=== PATIENT | male | born 1965 | race African-American/Black ===

== ENCOUNTER 2018-04-15 09:23 | Inpatient (IN) | payer MEDICARE, MEDICAID ==
[~2018-04-15] VITALS: Ht 182.9 cm; Wt 128.4 kg
[2018-04-15] VITALS (7 sets, daily range): BP systolic 176–193; BP diastolic 95–104
[2018-04-15] MEDS ORDERED: SODIUM CHLORIDE 0.9% 1,000 ML IV ONE (09:48)
[2018-04-15] MEDS ORDERED: PIPERACILLIN/TAZ 3.375G PREMIX 50 ML IV ONE (10:00)
[2018-04-15] MEDS ORDERED: ONDANSETRON HCL 4MG/2ML INJ IV ONE (10:00)
[2018-04-15] MEDS ORDERED: VANCOMYCIN 1 G PREMIX 200 ML IV ONE (10:00)
[2018-04-15] MEDS ORDERED: MORPHINE SULFATE 4 MG/ML CPJ (NOT FOR IM USE) IV ONE (10:00)
[2018-04-15 10:36] LABS: HEMATOCRIT. 30.5 % (42.0-52.0); HEMOGLOBIN. 9.7 g/dL (14.0-18.0); MEAN CORPUSCULAR HEMOGLOBIN 24.8 pg (28.0-32.0); MEAN CORPUSCULAR VOLUME 78.4 fL (80.0-94.0); MEAN PLATELET VOLUME 9.6 fl (7.4-10.4); PLATELET 178 x1000/uL (130-400); RED BLOOD CELL COUNT 3.89 mill/uL (4.7-6.1); RED CELL DISTRIBUTION WIDTH 18.8 % (11.6-14.6)
[2018-04-15 10:37] LABS: INR 1.1; PROTHROMBIN TIME 11.2 sec (9.1-11.1)
[2018-04-15 10:38] LABS: CHLORIDE 103 mEq/L (98-107)
[2018-04-15 11:00] LABS: PLATELET ESTIMATE NORMAL
[2018-04-15 11:21] LABS: BG BASE EXCESS 14.5 mmol/L (-2.0-2.0); BG CARBOXYHEMOGLOBIN 0.8 % (0.5-1.5); BG DEOXYHEMOGLOBIN 1.3 % (0.0-5.0); BG FRACTION INSPIRED OXYGEN 32; BG HCO3 ACT 42.1 mmol/L (22.0-26.0); BG METHEMOGLOBIN 0.3 % (0.0-1.5); BG OXYGEN SATURATION 98.7 % (92.0-98.5); BG OXYHEMOGLOBIN 97.6 % (94.0-97.0); BG PCO2 69.8 mmHg (35.0-45.0); BG PH 7.398 (7.350-7.450); BG PO2 131.6 mmHg (75.0-100.0); BG SAMPLE SITE RIGHT RADIAL; BG TOTAL HEMOGLOBIN 11.1 g/dL (12.0-18.0); BG VENT MODE NASAL CANNULA
[2018-04-15 13:14] LABS: CLARITY URINE CLEAR (CLEAR); COLOR URINE YELLOW (YELLOW); KETONES URINE NEGATIVE (NEGATIVE); LEUKOCYTE ESTERASE URINE NEGATIVE (NEGATIVE); NITRITE URINE NEGATIVE (NEGATIVE); OCCULT BLOOD URINE NEGATIVE (NEGATIVE); PH URINE 7.5 (4.5-8.0); PROTEIN URINE 2+ (NEGATIVE); SPECIFIC GRAVITY URINE 1.016 (1.005-1.030)
[2018-04-15 14:09] LABS: *AMPHETAMINES SCREEN URINE NEGATIVE (NEGATIVE); *BARBITURATES SCREEN URINE NEGATIVE (NEGATIVE); CANNABINOID URINE SCREEN NEGATIVE (NEGATIVE); METHADONE URINE SCREEN NEGATIVE (NEGATIVE); OPIATES URINE SCREEN NEGATIVE (NEGATIVE); PHENCYCLIDINE URINE SCREEN NEGATIVE (NEGATIVE)
[2018-04-15 14:10] LABS: *BENZODIAZEPINES SCREEN URINE NEGATIVE (NEGATIVE); *COCAINE SCREEN URINE NEGATIVE (NEGATIVE)
[2018-04-15] MEDS ORDERED: IPRATROPIUM/ALBUTEROL 0.5-3(2.5)MG/3ML NEB INH PRN (16:15)
[2018-04-15] MEDS ORDERED: LEVOFLOXACIN 500MG PREMIX 100 ML IV NR (18:00)
[2018-04-15 18:10] LABS: PHOSPHORUS 4.5 mg/dL (2.5-4.9)
[2018-04-15] MEDS: HYDROCODONE/ACETAMINOPHEN 5/325MG TABLET PO PRN (18:11)
[2018-04-15] MEDS: FUROSEMIDE 40MG/4ML VIAL IV SCH (18:11)
[2018-04-15] MEDS: DOCUSATE SODIUM 100MG CAPSULE PO PRN (18:11)
[2018-04-15] MEDS: AMLODIPINE 5MG TABLET PO SCH (18:12)
[2018-04-15 18:18] LABS: BG BASE EXCESS 2.8 mmol/L (-2.0-2.0); BG CARBOXYHEMOGLOBIN 1.2 % (0.5-1.5); BG DEOXYHEMOGLOBIN 7.5 % (0.0-5.0); BG FRACTION INSPIRED OXYGEN 40; BG HCO3 ACT 30.2 mmol/L (22.0-26.0); BG METHEMOGLOBIN 0.2 % (0.0-1.5); BG OXYGEN SATURATION 92.4 % (92.0-98.5); BG OXYHEMOGLOBIN 91.1 % (94.0-97.0); BG PCO2 61.4 mmHg (35.0-45.0); BG PH 7.309 (7.350-7.450); BG PO2 75.8 mmHg (75.0-100.0); BG SAMPLE SITE RIGHT BRACHIAL; BG TOTAL HEMOGLOBIN 10.3 g/dL (12.0-18.0); BG VENT MODE NASAL CANNULA
[2018-04-15] MEDS: ACETAMINOPHEN 325MG TABLET PO PRN (19:33)
[2018-04-15 20:03] LABS: TOTAL IRON BINDING CAPACITY 375 ug/dL (250-450)
[2018-04-15 20:24] LABS: FOLIC ACID (FOLATE) SERUM 17.4 ng/mL (>5.38)
[2018-04-15] MEDS: CLONIDINE 0.1MG TABLET PO PRN (20:24)
[2018-04-15] MEDS: INSULIN LISPRO 100 UNITS/ML SUBCUT SCH (21:00)
[2018-04-15] MEDS: BLOOD SUGAR DIAGNOSTIC STRIP TEST SCH (21:00)
[2018-04-15] MEDS ORDERED: DEXTROSE 50% WATER 50ML SYRINGE IV PRN (21:15)
[2018-04-15] MEDS: ONDANSETRON HCL 4MG/2ML INJ IV PRN (21:43)
[2018-04-15] MEDS ORDERED: INSULIN LISPRO 100 UNITS/ML SUBCUT SCH (22:00)
[2018-04-15] MEDS ORDERED: BLOOD SUGAR DIAGNOSTIC STRIP TEST SCH (22:00)
[2018-04-15 23:00] LABS: BG BASE EXCESS 7.5 mmol/L (-2.0-2.0); BG CARBOXYHEMOGLOBIN 0.7 % (0.5-1.5); BG DEOXYHEMOGLOBIN 6.8 % (0.0-5.0); BG FRACTION INSPIRED OXYGEN 40; BG HCO3 ACT 35.2 mmol/L (22.0-26.0); BG METHEMOGLOBIN 0.3 % (0.0-1.5); BG OXYGEN SATURATION 93.1 % (92.0-98.5); BG OXYHEMOGLOBIN 92.2 % (94.0-97.0); BG PCO2 68.5 mmHg (35.0-45.0); BG PH 7.329 (7.350-7.450); BG PO2 77.9 mmHg (75.0-100.0); BG SAMPLE SITE RIGHT BRACHIAL; BG TOTAL HEMOGLOBIN 10.4 g/dL (12.0-18.0); BG VENT MODE NASAL CANNULA
[2018-04-16] VITALS (12 sets, daily range): BP systolic 148–179; BP diastolic 69–115
[2018-04-16] MEDS: CLONIDINE 0.1MG TABLET PO PRN ×2 (05:52→18:06)
[2018-04-16 06:30] LABS: HEMATOCRIT. 30.4 % (42.0-52.0); HEMOGLOBIN. 9.5 g/dL (14.0-18.0); MEAN CORPUSCULAR HEMOGLOBIN 24.9 pg (28.0-32.0); MEAN CORPUSCULAR VOLUME 79.4 fL (80.0-94.0); MEAN PLATELET VOLUME 9.7 fl (7.4-10.4); PLATELET 178 x1000/uL (130-400); RED BLOOD CELL COUNT 3.83 mill/uL (4.7-6.1); RED CELL DISTRIBUTION WIDTH 18.9 % (11.6-14.6)
[2018-04-16] MEDS: FUROSEMIDE 40MG/4ML VIAL IV SCH ×2 (06:35→17:21)
[2018-04-16] MEDS: INSULIN LISPRO 100 UNITS/ML SUBCUT SCH ×4 (08:00→20:59)
[2018-04-16] MEDS: BLOOD SUGAR DIAGNOSTIC STRIP TEST SCH ×4 (08:11→20:58)
[2018-04-16] MEDS: AMLODIPINE 5MG TABLET PO SCH (08:29)
[2018-04-16] MEDS: ASPIRIN 81MG EC TABLET PO SCH (08:29)
[2018-04-16] MEDS: POTASSIUM CHLORIDE 20MEQ TABLET SR PO SCH (11:00)
[2018-04-16] MEDS: NITROGLYCERIN OINT 1GM/INCH UDPKT TD SCH ×3 (11:00→21:05)
[2018-04-16 11:41] LABS: PLATELET ESTIMATE NORMAL
[2018-04-16] MEDS: ONDANSETRON HCL 4MG/2ML INJ IV PRN (12:07)
[2018-04-16] MEDS ORDERED: POTA10CA42 PO (13:59)
[2018-04-16] MEDS ORDERED: DIVA-75 PO (13:59)
[2018-04-16] MEDS ORDERED: LABE300T3 PO (13:59)
[2018-04-16] MEDS ORDERED: OMEP20TA2 PO (13:59)
[2018-04-16] MEDS ORDERED: LISI40TA4 PO (13:59)
[2018-04-16] MEDS ORDERED: HYDR-4134 PO (13:59)
[2018-04-16] MEDS ORDERED: GLIP10TA10 PO (13:59)
[2018-04-16] MEDS ORDERED: CLON0.1T PO (13:59)
[2018-04-16] MEDS ORDERED: RISP3DIS PO (13:59)
[2018-04-16] MEDS ORDERED: FENO145T36 PO (13:59)
[2018-04-16] MEDS ORDERED: TRIH5TAB3 GT (13:59)
[2018-04-16] MEDS ORDERED: SIMV20TA6 PO (13:59)
[2018-04-16] MEDS ORDERED: LINA5TAB PO (13:59)
[2018-04-16] MEDS ORDERED: FURO40TA5 PO (13:59)
[2018-04-16] MEDS ORDERED: GABA-531 PO (13:59)
[2018-04-16] MEDS ORDERED: TERA2CAP4 PO (13:59)
[2018-04-16] MEDS ORDERED: LEVOFLOXACIN 250MG PREMIX 50 ML IV SCH (18:00)
[2018-04-16] MEDS: LEVOFLOXACIN 500MG PREMIX 100 ML IV SCH (18:06)
[2018-04-16] MEDS: CARVEDILOL 6.25 MG TABLET PO SCH (21:05)
[2018-04-16] MEDS: IPRATROPIUM/ALBUTEROL 0.5-3(2.5)MG/3ML NEB HHN SCH (23:50)
[2018-04-17] VITALS (11 sets, daily range): BP systolic 163–198; BP diastolic 80–124
[2018-04-17] MEDS: CLONIDINE 0.1MG TABLET PO PRN ×2 (03:47→10:58)
[2018-04-17] MEDS: ACETAMINOPHEN 325MG TABLET PO PRN (03:48)
[2018-04-17] MEDS: NITROGLYCERIN OINT 1GM/INCH UDPKT TD SCH ×3 (05:26→21:13)
[2018-04-17] MEDS: LORAZEPAM 0.5MG TABLET PO PRN (05:33)
[2018-04-17 05:58] LABS: BASOPHILS % 0.2 % (0.0-2.0); EOSINOPHILS % 0.7 % (0.0-5.0); HEMATOCRIT. 31.1 % (42.0-52.0); HEMOGLOBIN. 9.8 g/dL (14.0-18.0); LYMPHOCYTES % 7.2 % (20.0-50.0); MEAN CORPUSCULAR HEMOGLOBIN 24.8 pg (28.0-32.0); MEAN CORPUSCULAR VOLUME 79.2 fL (80.0-94.0); MEAN PLATELET VOLUME 9.9 fl (7.4-10.4); MONOCYTES % 7.6 % (2.0-8.0); NEUTROPHILS % 84.3 % (40.0-76.0); PLATELET 210 x1000/uL (130-400); RED BLOOD CELL COUNT 3.93 mill/uL (4.7-6.1); RED CELL DISTRIBUTION WIDTH 18.8 % (11.6-14.6)
[2018-04-17] MEDS: FUROSEMIDE 40MG/4ML VIAL IV SCH ×2 (06:18→17:43)
[2018-04-17 06:34] LABS: HEPATITIS B SURFACE ANTIGEN NEGATIVE
[2018-04-17] MEDS: BLOOD SUGAR DIAGNOSTIC STRIP TEST SCH ×4 (06:54→20:42)
[2018-04-17 07:04] LABS: HEPATITIS A AB IGM NEGATIVE (NEGATIVE)
[2018-04-17] MEDS: INSULIN LISPRO 100 UNITS/ML SUBCUT SCH ×4 (08:00→20:42)
[2018-04-17] MEDS: IPRATROPIUM/ALBUTEROL 0.5-3(2.5)MG/3ML NEB HHN SCH ×3 (09:00→20:35)
[2018-04-17] MEDS: ASPIRIN 81MG EC TABLET PO SCH (09:13)
[2018-04-17] MEDS: NIFEDIPINE XL 30MG TAB PO SCH ×2 (09:13→21:11)
[2018-04-17] MEDS: CARVEDILOL 6.25 MG TABLET PO SCH ×2 (09:13→21:12)
[2018-04-17] MEDS: POTASSIUM CHLORIDE 20MEQ TABLET SR PO SCH (09:13)
[2018-04-17] MEDS: ISOSORB DINIT/HYDRALAZINE HCL 20/37.5MG TABLET PO SCH ×2 (13:44→21:13)
[2018-04-17] MEDS: CLONIDINE 0.2MG TABLET PO SCH ×2 (13:45→21:12)
[2018-04-17] MEDS: LEVOFLOXACIN 500MG PREMIX 100 ML IV SCH (17:43)
[2018-04-17] MEDS: DIVALPROEX SODIUM 250MG DR TABLET PO SCH (21:13)
[2018-04-18] VITALS (11 sets, daily range): BP systolic 134–176; BP diastolic 75–100
[2018-04-18] MEDS: IPRATROPIUM/ALBUTEROL 0.5-3(2.5)MG/3ML NEB HHN SCH ×4 (02:26→20:17)
[2018-04-18] MEDS: CLONIDINE 0.1MG TABLET PO PRN (04:09)
[2018-04-18] MEDS: ISOSORB DINIT/HYDRALAZINE HCL 20/37.5MG TABLET PO SCH ×3 (05:15→21:32)
[2018-04-18] MEDS: NITROGLYCERIN OINT 1GM/INCH UDPKT TD SCH ×3 (05:15→21:32)
[2018-04-18] MEDS: CLONIDINE 0.2MG TABLET PO SCH ×3 (05:15→21:32)
[2018-04-18] MEDS: FUROSEMIDE 40MG/4ML VIAL IV SCH ×2 (06:34→17:10)
[2018-04-18 06:35] LABS: BASOPHILS % 0.3 % (0.0-2.0); EOSINOPHILS % 1.8 % (0.0-5.0); HEMOGLOBIN. 9.6 g/dL (14.0-18.0); LYMPHOCYTES % 8.6 % (20.0-50.0); MEAN CORPUSCULAR HEMOGLOBIN 24.4 pg (28.0-32.0); MEAN PLATELET VOLUME 9.8 fl (7.4-10.4); MONOCYTES % 8.6 % (2.0-8.0); NEUTROPHILS % 80.7 % (40.0-76.0); PLATELET 221 x1000/uL (130-400); RED BLOOD CELL COUNT 3.93 mill/uL (4.7-6.1)
[2018-04-18] MEDS: BLOOD SUGAR DIAGNOSTIC STRIP TEST SCH ×4 (06:42→20:33)
[2018-04-18 07:34] LABS: PHOSPHORUS 2.9 mg/dL (2.5-4.9)
[2018-04-18] MEDS: INSULIN LISPRO 100 UNITS/ML SUBCUT SCH ×4 (08:00→20:40)
[2018-04-18] MEDS: DIVALPROEX SODIUM 250MG DR TABLET PO SCH ×2 (08:43→20:38)
[2018-04-18] MEDS: LORAZEPAM 0.5MG TABLET PO PRN (08:43)
[2018-04-18] MEDS: TRIHEXYPHENIDYL HCL 5 MG TABLET PO SCH ×2 (08:43→17:10)
[2018-04-18] MEDS: ASPIRIN 81MG EC TABLET PO SCH (08:44)
[2018-04-18] MEDS: CARVEDILOL 6.25 MG TABLET PO SCH ×2 (08:44→20:38)
[2018-04-18] MEDS: NIFEDIPINE XL 30MG TAB PO SCH ×2 (08:45→20:39)
[2018-04-18] MEDS: ACETAMINOPHEN 325MG TABLET PO PRN ×2 (08:45→20:37)
[2018-04-18] MEDS: POTASSIUM CHLORIDE 20MEQ TABLET SR PO SCH (08:45)
[2018-04-18] MEDS: RISPERIDONE 1MG TABLET PO SCH (08:49)
[2018-04-18 10:11] LABS: HIV SCREEN 4G Non Reactive (Non Reactive)
[2018-04-18] MEDS: LEVOFLOXACIN 500MG PREMIX 100 ML IV SCH (17:44)
[2018-04-19] VITALS (8 sets, daily range): BP systolic 142–169; BP diastolic 69–98
[2018-04-19] MEDS: IPRATROPIUM/ALBUTEROL 0.5-3(2.5)MG/3ML NEB HHN SCH ×4 (02:40→20:10)
[2018-04-19] MEDS: CLONIDINE 0.2MG TABLET PO SCH ×3 (05:01→22:00)
[2018-04-19] MEDS: ISOSORB DINIT/HYDRALAZINE HCL 20/37.5MG TABLET PO SCH ×3 (05:02→22:00)
[2018-04-19] MEDS: HYDROCODONE/ACETAMINOPHEN 5/325MG TABLET PO PRN ×2 (05:06→16:32)
[2018-04-19 05:22] LABS: COMPLEMENT C3 153 mg/dL (82-167)
[2018-04-19 06:27] LABS: HEMATOCRIT. 31.7 % (42.0-52.0); MEAN CORPUSCULAR HEMOGLOBIN 24.4 pg (28.0-32.0); MEAN CORPUSCULAR VOLUME 77.2 fL (80.0-94.0); MEAN PLATELET VOLUME 9.5 fl (7.4-10.4); PLATELET 246 x1000/uL (130-400); RED CELL DISTRIBUTION WIDTH 18.4 % (11.6-14.6)
[2018-04-19] MEDS: BLOOD SUGAR DIAGNOSTIC STRIP TEST SCH ×4 (07:30→21:00)
[2018-04-19] MEDS: INSULIN LISPRO 100 UNITS/ML SUBCUT SCH ×4 (08:00→21:00)
[2018-04-19 09:05] LABS: PHOSPHORUS 4.1 mg/dL (2.5-4.9)
[2018-04-19] MEDS: POTASSIUM CHLORIDE 20MEQ TABLET SR PO SCH (09:48)
[2018-04-19] MEDS: NITROGLYCERIN OINT 1GM/INCH UDPKT TD SCH ×3 (09:49→22:15)
[2018-04-19] MEDS: NIFEDIPINE XL 30MG TAB PO SCH (09:49)
[2018-04-19] MEDS: ASPIRIN 81MG EC TABLET PO SCH (09:50)
[2018-04-19] MEDS: CARVEDILOL 6.25 MG TABLET PO SCH ×2 (09:50→22:00)
[2018-04-19] MEDS: DOCUSATE SODIUM 100MG CAPSULE PO PRN (09:50)
[2018-04-19] MEDS: RISPERIDONE 1MG TABLET PO SCH (09:50)
[2018-04-19] MEDS: FUROSEMIDE 40MG/4ML VIAL IV SCH ×2 (09:50→16:31)
[2018-04-19] MEDS: TRIHEXYPHENIDYL HCL 5 MG TABLET PO SCH ×2 (09:51→16:32)
[2018-04-19] MEDS: LORAZEPAM 0.5MG TABLET PO PRN (09:51)
[2018-04-19] MEDS: DIVALPROEX SODIUM 250MG DR TABLET PO SCH ×2 (09:52→22:00)
[2018-04-19 11:24] LABS: PLATELET ESTIMATE NORMAL
[2018-04-19] MEDS ORDERED: NIFEDIPINE XL 60MG TAB PO SCH (21:00)
[2018-04-19] MEDS: NIFEDIPINE XL 90MG TAB PO SCH (21:59)
[2018-04-20] VITALS (7 sets, daily range): BP systolic 109–141; BP diastolic 66–85
[2018-04-20] MEDS: IPRATROPIUM/ALBUTEROL 0.5-3(2.5)MG/3ML NEB HHN SCH ×2 (01:36→20:18)
[2018-04-20] MEDS: BLOOD SUGAR DIAGNOSTIC STRIP TEST SCH ×4 (05:47→21:29)
[2018-04-20] MEDS: INSULIN LISPRO 100 UNITS/ML SUBCUT SCH ×4 (05:47→21:00)
[2018-04-20] MEDS: NITROGLYCERIN OINT 1GM/INCH UDPKT TD SCH (05:48)
[2018-04-20] MEDS: CLONIDINE 0.2MG TABLET PO SCH ×3 (05:48→21:28)
[2018-04-20] MEDS: ISOSORB DINIT/HYDRALAZINE HCL 20/37.5MG TABLET PO SCH ×3 (05:49→21:33)
[2018-04-20] MEDS: FUROSEMIDE 40MG/4ML VIAL IV SCH (06:28)
[2018-04-20 07:18] LABS: HEMATOCRIT. 31.5 % (42.0-52.0); HEMOGLOBIN. 10.1 g/dL (14.0-18.0); MEAN CORPUSCULAR HEMOGLOBIN 24.6 pg (28.0-32.0); MEAN CORPUSCULAR VOLUME 76.9 fL (80.0-94.0); MEAN PLATELET VOLUME 9.6 fl (7.4-10.4); PLATELET 274 x1000/uL (130-400); RED CELL DISTRIBUTION WIDTH 18.4 % (11.6-14.6)
[2018-04-20 07:36] LABS: CHLORIDE 98 mEq/L (98-107)
[2018-04-20 07:51] LABS: PHOSPHORUS 4.7 mg/dL (2.5-4.9)
[2018-04-20 08:32] LABS: BG BASE EXCESS 6.9 mmol/L (-2.0-2.0); BG CARBOXYHEMOGLOBIN 0.8 % (0.5-1.5); BG DEOXYHEMOGLOBIN 11.1 % (0.0-5.0); BG FRACTION INSPIRED OXYGEN 21; BG HCO3 ACT 31.4 mmol/L (22.0-26.0); BG METHEMOGLOBIN 0.3 % (0.0-1.5); BG OXYGEN SATURATION 88.8 % (92.0-98.5); BG OXYHEMOGLOBIN 87.8 % (94.0-97.0); BG PCO2 44.3 mmHg (35.0-45.0); BG PH 7.468 (7.350-7.450); BG SAMPLE SITE RIGHT BRACHIAL; BG TOTAL HEMOGLOBIN 10.3 g/dL (12.0-18.0); BG VENT MODE ROOM AIR
[2018-04-20] MEDS: POTASSIUM CHLORIDE 20MEQ TABLET SR PO SCH (09:44)
[2018-04-20] MEDS: CARVEDILOL 6.25 MG TABLET PO SCH ×2 (09:44→21:29)
[2018-04-20] MEDS: ASPIRIN 81MG EC TABLET PO SCH (09:44)
[2018-04-20] MEDS: NIFEDIPINE XL 90MG TAB PO SCH ×2 (09:44→21:28)
[2018-04-20] MEDS: DIVALPROEX SODIUM 250MG DR TABLET PO SCH ×2 (09:44→21:29)
[2018-04-20] MEDS: RISPERIDONE 1MG TABLET PO SCH (09:45)
[2018-04-20] MEDS: LEVOFLOXACIN 500MG TABLET PO SCH (11:28)
[2018-04-20] MEDS: TRIHEXYPHENIDYL HCL 5 MG TABLET PO SCH ×2 (11:28→17:32)
[2018-04-20 14:12] LABS: PLATELET ESTIMATE NORMAL
[2018-04-20] MEDS: ENOXAPARIN 40MG/0.4ML SYR SUBCUT SCH ×2 (14:52→21:28)
[2018-04-21] VITALS: BP 144/72
[2018-04-21] MEDS: IPRATROPIUM/ALBUTEROL 0.5-3(2.5)MG/3ML NEB HHN SCH ×4 (01:57→21:11)
[2018-04-21 04:00] VITALS: BP 131/74
[2018-04-21] MEDS: ISOSORB DINIT/HYDRALAZINE HCL 20/37.5MG TABLET PO SCH ×3 (05:58→21:52)
[2018-04-21] MEDS: BLOOD SUGAR DIAGNOSTIC STRIP TEST SCH ×4 (06:00→21:53)
[2018-04-21] MEDS: CLONIDINE 0.2MG TABLET PO SCH ×3 (06:03→15:03)
[2018-04-21] MEDS: INSULIN LISPRO 100 UNITS/ML SUBCUT SCH ×4 (06:16→21:00)
[2018-04-21 06:48] LABS: BASOPHILS % 0.2 % (0.0-2.0); EOSINOPHILS % 0.4 % (0.0-5.0); HEMATOCRIT. 31.3 % (42.0-52.0); HEMOGLOBIN. 9.9 g/dL (14.0-18.0); LYMPHOCYTES % 7.3 % (20.0-50.0); MEAN CORPUSCULAR HEMOGLOBIN 24.3 pg (28.0-32.0); MEAN PLATELET VOLUME 9.3 fl (7.4-10.4); MONOCYTES % 9.3 % (2.0-8.0); NEUTROPHILS % 82.8 % (40.0-76.0); PLATELET 276 x1000/uL (130-400); RED BLOOD CELL COUNT 4.06 mill/uL (4.7-6.1); RED CELL DISTRIBUTION WIDTH 18.4 % (11.6-14.6)
[2018-04-21 07:08] LABS: PHOSPHORUS 4.6 mg/dL (2.5-4.9)
[2018-04-21 07:30] VITALS: BP 129/71
[2018-04-21] MEDS: ENOXAPARIN 40MG/0.4ML SYR SUBCUT SCH ×2 (09:56→22:01)
[2018-04-21] MEDS: ASPIRIN 81MG EC TABLET PO SCH (09:56)
[2018-04-21] MEDS: FUROSEMIDE 40MG/4ML VIAL IV SCH (09:56)
[2018-04-21] MEDS: TRIHEXYPHENIDYL HCL 5 MG TABLET PO SCH ×2 (09:56→18:30)
[2018-04-21] MEDS: CARVEDILOL 6.25 MG TABLET PO SCH ×2 (09:56→21:52)
[2018-04-21] MEDS: DIVALPROEX SODIUM 250MG DR TABLET PO SCH ×2 (09:56→21:52)
[2018-04-21] MEDS: NIFEDIPINE XL 90MG TAB PO SCH ×2 (09:57→21:52)
[2018-04-21] MEDS: POTASSIUM CHLORIDE 20MEQ TABLET SR PO SCH (09:57)
[2018-04-21] MEDS: RISPERIDONE 1MG TABLET PO SCH (09:57)
[2018-04-21 10:41] LABS: BG BASE EXCESS 5.5 mmol/L (-2.0-2.0); BG CARBOXYHEMOGLOBIN 1.1 % (0.5-1.5); BG DEOXYHEMOGLOBIN 9.5 % (0.0-5.0); BG FRACTION INSPIRED OXYGEN 21; BG HCO3 ACT 30.2 mmol/L (22.0-26.0); BG METHEMOGLOBIN 0.3 % (0.0-1.5); BG OXYGEN SATURATION 90.4 % (92.0-98.5); BG OXYHEMOGLOBIN 89.1 % (94.0-97.0); BG PCO2 44.5 mmHg (35.0-45.0); BG PH 7.449 (7.350-7.450); BG PO2 62.7 mmHg (75.0-100.0); BG SAMPLE SITE RIGHT BRACHIAL; BG TOTAL HEMOGLOBIN 10.7 g/dL (12.0-18.0); BG VENT MODE ROOM AIR
[2018-04-21 12:00] VITALS: BP 122/73
[2018-04-21] MEDS: LEVOFLOXACIN 500MG TABLET PO SCH (12:09)
[2018-04-21 16:00] VITALS: BP 132/70
[2018-04-22] VITALS: BP 131/71
[2018-04-22] MEDS: IPRATROPIUM/ALBUTEROL 0.5-3(2.5)MG/3ML NEB HHN SCH ×4 (02:39→20:48)
[2018-04-22 04:00] VITALS: BP 130/64
[2018-04-22 06:22] LABS: BASOPHILS % 0.4 % (0.0-2.0); EOSINOPHILS % 0.4 % (0.0-5.0); HEMATOCRIT. 34.4 % (42.0-52.0); HEMOGLOBIN. 10.8 g/dL (14.0-18.0); MEAN CORPUSCULAR HEMOGLOBIN 24.4 pg (28.0-32.0); MEAN CORPUSCULAR VOLUME 77.7 fL (80.0-94.0); MEAN PLATELET VOLUME 9.6 fl (7.4-10.4); MONOCYTES % 8.3 % (2.0-8.0); NEUTROPHILS % 82.9 % (40.0-76.0); PLATELET 287 x1000/uL (130-400); RED BLOOD CELL COUNT 4.43 mill/uL (4.7-6.1)
[2018-04-22 06:32] LABS: PHOSPHORUS 4.2 mg/dL (2.5-4.9)
[2018-04-22] MEDS: INSULIN LISPRO 100 UNITS/ML SUBCUT SCH ×4 (07:40→20:59)
[2018-04-22] MEDS: CLONIDINE 0.2MG TABLET PO SCH ×3 (07:45→20:53)
[2018-04-22] MEDS: ISOSORB DINIT/HYDRALAZINE HCL 20/37.5MG TABLET PO SCH ×3 (07:46→20:53)
[2018-04-22] MEDS: BLOOD SUGAR DIAGNOSTIC STRIP TEST SCH ×4 (07:46→20:59)
[2018-04-22 08:00] VITALS: BP 141/76
[2018-04-22] MEDS: FUROSEMIDE 40MG/4ML VIAL IV SCH (09:28)
[2018-04-22] MEDS: RISPERIDONE 1MG TABLET PO SCH (09:29)
[2018-04-22] MEDS: NIFEDIPINE XL 90MG TAB PO SCH ×2 (09:29→20:54)
[2018-04-22] MEDS: DIVALPROEX SODIUM 250MG DR TABLET PO SCH ×2 (09:29→20:52)
[2018-04-22] MEDS: ASPIRIN 81MG EC TABLET PO SCH (09:29)
[2018-04-22] MEDS: CARVEDILOL 6.25 MG TABLET PO SCH ×2 (09:30→20:53)
[2018-04-22] MEDS: POTASSIUM CHLORIDE 20MEQ TABLET SR PO SCH (09:30)
[2018-04-22] MEDS: ENOXAPARIN 40MG/0.4ML SYR SUBCUT SCH ×2 (09:30→20:55)
[2018-04-22] MEDS: TRIHEXYPHENIDYL HCL 5 MG TABLET PO SCH ×2 (09:32→18:03)
[2018-04-22] MEDS: LEVOFLOXACIN 500MG TABLET PO SCH (11:40)
[2018-04-22 11:51] VITALS: BP 125/58
[2018-04-22 16:00] VITALS: BP_SYST 139; BP_SYST 145; BP_DIAS 80; BP_DIAS 83
[2018-04-22 20:00] VITALS: BP 149/81
[2018-04-23] VITALS: BP 176/94
[2018-04-23] MEDS: IPRATROPIUM/ALBUTEROL 0.5-3(2.5)MG/3ML NEB HHN SCH ×3 (02:03→14:29)
[2018-04-23 04:00] VITALS: BP 150/78
[2018-04-23 06:13] LABS: BASOPHILS % 0.4 % (0.0-2.0); EOSINOPHILS % 0.7 % (0.0-5.0); HEMATOCRIT. 33.4 % (42.0-52.0); HEMOGLOBIN. 10.4 g/dL (14.0-18.0); LYMPHOCYTES % 9.4 % (20.0-50.0); MEAN CORPUSCULAR HEMOGLOBIN 24.2 pg (28.0-32.0); MEAN CORPUSCULAR VOLUME 77.5 fL (80.0-94.0); MEAN PLATELET VOLUME 9.5 fl (7.4-10.4); MONOCYTES % 10.8 % (2.0-8.0); NEUTROPHILS % 78.7 % (40.0-76.0); PLATELET 320 x1000/uL (130-400); RED BLOOD CELL COUNT 4.31 mill/uL (4.7-6.1); RED CELL DISTRIBUTION WIDTH 18.3 % (11.6-14.6)
[2018-04-23] MEDS: ISOSORB DINIT/HYDRALAZINE HCL 20/37.5MG TABLET PO SCH ×2 (06:23→12:51)
[2018-04-23] MEDS: CLONIDINE 0.2MG TABLET PO SCH ×2 (06:23→12:51)
[2018-04-23] MEDS: INSULIN LISPRO 100 UNITS/ML SUBCUT SCH ×3 (06:24→17:11)
[2018-04-23] MEDS: BLOOD SUGAR DIAGNOSTIC STRIP TEST SCH ×3 (06:24→17:11)
[2018-04-23 06:44] LABS: PHOSPHORUS 3.3 mg/dL (2.5-4.9)
[2018-04-23 07:54] VITALS: BP 129/69
[2018-04-23] MEDS ORDERED: FUROSEMIDE 20MG TABLET PO SCH (09:00)
[2018-04-23] MEDS: TRIHEXYPHENIDYL HCL 5 MG TABLET PO SCH ×2 (09:13→17:35)
[2018-04-23] MEDS: CARVEDILOL 6.25 MG TABLET PO SCH (09:14)
[2018-04-23] MEDS: RISPERIDONE 1MG TABLET PO SCH (09:14)
[2018-04-23] MEDS: POTASSIUM CHLORIDE 20MEQ TABLET SR PO SCH (09:14)
[2018-04-23] MEDS: ASPIRIN 81MG EC TABLET PO SCH (09:14)
[2018-04-23] MEDS: NIFEDIPINE XL 90MG TAB PO SCH (09:14)
[2018-04-23] MEDS: DIVALPROEX SODIUM 250MG DR TABLET PO SCH (09:14)
[2018-04-23] MEDS: ENOXAPARIN 40MG/0.4ML SYR SUBCUT SCH (09:15)
[2018-04-23 11:58] VITALS: BP 146/83
[2018-04-23 13:07] VITALS: BP_SYST 127; BP_SYST 146; BP_DIAS 65; BP_DIAS 83
[2018-04-23 16:00] VITALS: BP 127/65
== END 2018-04-23 20:40 | DRG 682 ==
LOC: ER 09:50 → 5EST 12:45 → EDBEDREQ 12:49 → EDBEDREQTM 12:49 → ENRESERV 12:58 → 5EST 04-16 20:50 → 8WST 04-19 20:54
PROVIDERS: ADMIT Internal Medicine; ATTEND Internal Medicine
PROC: 5A09357 Assistance with Respiratory Ventilation, Less than 24 Consecutive Hours, Continuous Positive Airway Pressure (ICD-10-PCS; principal; 2018-04-16)
PROC: 5A09357 Assistance with Respiratory Ventilation, Less than 24 Consecutive Hours, Continuous Positive Airway Pressure (ICD-10-PCS; 2018-04-17)
PROC: 5A09357 Assistance with Respiratory Ventilation, Less than 24 Consecutive Hours, Continuous Positive Airway Pressure (ICD-10-PCS; 2018-04-18)
PROC: 5A09357 Assistance with Respiratory Ventilation, Less than 24 Consecutive Hours, Continuous Positive Airway Pressure (ICD-10-PCS; 2018-04-19)
PROC: 5A09357 Assistance with Respiratory Ventilation, Less than 24 Consecutive Hours, Continuous Positive Airway Pressure (ICD-10-PCS; 2018-04-21)
DX: N17.9 Acute kidney failure, unspecified (principal); I50.43 Acute on chronic combined systolic (congestive) and diastolic (congestive) heart failure; J96.01 Acute respiratory failure with hypoxia; J96.02 Acute respiratory failure with hypercapnia; J18.9 Pneumonia, unspecified organism; I13.0 Hypertensive heart and chronic kidney disease with heart failure and stage 1 through stage 4 chronic kidney disease, or unspecified chronic kidney disease; E44.1 Mild protein-calorie malnutrition; E87.2 Acidosis; I16.1 Hypertensive emergency; D50.9 Iron deficiency anemia, unspecified; D72.821 Monocytosis (symptomatic); E11.22 Type 2 diabetes mellitus with diabetic chronic kidney disease; E66.01 Morbid (severe) obesity due to excess calories; M79.673 Pain in unspecified foot; F20.9 Schizophrenia, unspecified; I25.10 Atherosclerotic heart disease of native coronary artery without angina pectoris; I27.20 Pulmonary hypertension, unspecified; N18.3 Chronic kidney disease, stage 3 (moderate); Z82.49 Family history of ischemic heart disease and other diseases of the circulatory system; Z83.3 Family history of diabetes mellitus; Z88.8 Allergy status to other drugs, medicaments and biological substances; Z68.38 Body mass index [BMI] 38.0-38.9, adult; Z79.4 Long term (current) use of insulin; Z79.899 Other long term (current) drug therapy
CPT/HCPCS: 36415; 36600; 71045; 73620; 74176; 76770; 78582; 80048; 80061; 80305; 82375; 82607; 82728; 82746; 82805; 82962; 83036; 83540; 83550; 83605; 83735; 83880; 84100; 84145; 84443; 84484; 85379; 86160; 86705; 86709; 86803; 87340; 87389; 87804; 93005; 93306; 93970; 94003; 94640; 94660; 96372; 97116; 97162; 97530; 99285; A9558; C1893; J1650; J1815; J1940; J1956; J2405; J2543; J3370; J7030; J7620